=== PATIENT | male | born 1990 | race Caucasian/White ===

== ENCOUNTER 2017-04-07 02:26 | Emergency (ER) | payer SELFPAY ==
[~2017-04-07] VITALS: Ht 167.6 cm; Wt 78.6 kg
[2017-04-07 02:34] VITALS: TEMP 36.8; Ht 167.6 cm; Wt 78.6 kg
[2017-04-07] MEDS ORDERED: OXYCODONE HCL IR 5 MG TAB (IMMEDIATE RELEASE) PO STA (02:51)
[2017-04-07] MEDS ORDERED: OXYC1TAB3 PO (04:14)
[2017-04-07] MEDS ORDERED: OXYCODONE IR HOME PACK PO ONE (04:15)
--- NOTE | 2017-04-07 04:15 | EMERGENCY ROOM VISIT NOTE ---
ED Visit Note First contact with patient: 02:36 CHIEF COMPLAINT: Elbow pain HISTORY OF PRESENT ILLNESS: This 27-year-old male patient presents to the emergency department ambulatory complaining of pain in the right elbow. The patient states that he dislocated his elbow yesterday while riding a bull. He states that he reduced the elbow by himself. He was seen at [place] due to significant bruising and pain and had an x-ray. He was told that he sprained his elbow. He states that he had a previous injury to this elbow years ago but performed exercises at home by himself and never saw a specialist. He rates his current discomfort a 9/10. He reports some numbness in the right third fourth and fifth digits. He denies any other injuries. REVIEW OF SYSTEMS: A 6 system review of systems was completed with positives and pertinent negatives listed in the HPI. ALLERGIES: Penicillins MEDICATIONS: And chronic medications PMH: Previous elbow injury, no significant past medical history. SOCIAL HISTORY: The patient was locally with family. PHYSICAL EXAM: Vital Signs: Reviewed Nurse's notes, vital signs stable. GENERAL : This is a 27-year-old male, in no acute distress, well-developed, well- nourished. SKIN: The skin was without rashes, erythema, edema, warmth, or bruising. Capillary reflex less than 3 seconds. MUSCULOSKELETAL: The patient is holding their elbow in slight flexion. There is significant ecchymosis over the medial aspect of the elbow. There is tenderness to palpation over the medial aspect. Full range of motion of the elbow. Radial pulses 2+. Fingers of the left hand feels slightly colder than the right. NEURO: Patient was alert and oriented to person place and time. Normal sensation to light and sharp touch. RADIOGRAPHIC FINDINGS: RIGHT ELBOW X-RAY: Large bony fragment along the medial aspect of the elbow joint, age indeterminate. There are several smaller bony fragments along the lateral aspect, also age indeterminate. EMERGENCY DEPARTMENT COURSE: I examined the patient. An x-ray of the right elbow was reviewed myself and my attending and shows some abnormal bony fragments most pronounced over the medial aspect of the elbow. The patient has a significant amount of ecchymosis and swelling. He has a hematoma to the medial aspect of the elbow. I do feel this is likely an acute injury and he will certainly need follow-up with orthopedics. He was given information for follow-up. He was placed in an arm sling. The patient was complaining of some numbness of the fingers. Pelvis is likely secondary to the swelling compressing the ulnar nerve. There is no evidence of compartment syndrome on exam today. Patient was given oxycodone in the emergency department for pain and was given a prescription for this. Compartment syndrome warning signs were discussed with the patient. Conservative measures were discussed. He verbalized understanding. The patient was discharged home in stable condition. Patient was reviewed in the [place] prescription drug monitoring program; no red flags were identied. Medication reconciliation: I attest that I have personally reviewed the patient 's current medication list. Blood pressure screening: Patient was found to have normal blood pressure on screening and does not require follow-up. DIAGNOSIS: Elbow injury Current/Historical Medications Scheduled PRN Oxycodone Ir (Roxicodone Ir), 1-2 TAB PO Q4H PRN for Pain Allergies Coded Allergies: Penicillins (Unverified Allergy, Unknown, hives, 04/07/17) Vital Signs Date Time Temp Pulse Resp B/P (MAP) Pulse Ox O2 Delivery O2 Flow Rate FiO2 04/07/17 04:35 94 20 127/94 98 Room Air 04/07/17 02:34 36.8 91 18 98 Room Air Medications Administered Medications (Trade) Dose Ordered Sig/Dorian Route Start Time Stop Time Status Last Admin Dose Admin Oxycodone HCl (Roxicodone Immediate Rel Tab) 5 mg NOW STAT PO 04/07/17 02:51 04/07/17 02:52 DC 04/07/17 03:10 5 MG Oxycodone HCl (Roxicodone Immediate Rel 5MG Home Pack) 1 homepack UD ONCE PO 04/07/17 04:15 04/07/17 04:16 DC 04/07/17 04:38 1 HOMEPACK Departure Information Impression Primary Impression: Injury of right elbow Dispostion Home / Self-Care Condition GOOD Prescriptions Oxycodone Ir (Roxicodone Ir) 5 Mg Tab 1-2 TAB PO Q4H Y for Pain, #15 TAB For Initial Treatment Prov: Tawny Krishnamurthy, DEONNA 04/07/17 Referrals No Doctor, Assigned (PCP) Cayetano Irby MD Patient Instructions My [facility] Additional Instructions You have been treated in the Emergency Department for Elbow Pain. You have received pain medicine in the emergency department which impairs your ability to operate a vehicle. It is illegal for you to drive after receiving these medicines. You have been prescribed Oxy IR to be used for pain control. This is a narcotic medication. You cannot drive or consume alcohol while on this medicine. This medicine should only be used for pain that cannot be controlled with over-the- counter pain medicines. For pain control, you can use the following [id number] medicines (if >12 yo): - Regular strength (325mg/tab) Tylenol (acetaminophen) 2 tabs every 4-6 hours as needed. Do not exceed 12 tablets in a 24 hour period. Avoid taking more than 4 grams (4000 mg) of Tylenol per day. This includes any other sources of acetaminophen you may take on a regular basis. - Regular strength (200 mg/tab) Advil (ibuprofen) 1-2 tabs every 4-6 hours as needed. Do not exceed a dose of 3200 mg per day. If this is a recent injury (<24 hrs), ice can be applied to the area of pain for the first 3 days to help decrease pain and inflammation. You have been provided the number for an Orthopaedic Surgeon. You should call this number as soon as possible to establish a follow-up visit from today's Emergency Department visit. Keep the sling in place until evaluated by Orthopedics. Return to the Emergency Department if your current symptoms worsen despite treatment course outlined above, or if you develop any of the following symptoms : intractable pain despite aforementioned treatment course or new onset of numbness or tingling of the arm. Problem Qualifiers Primary Impression: Injury of right elbow Encounter type: initial encounter Qualified Codes: S59.901A - Unspecified injury of right elbow, initial encounter
[2017-04-07 04:35] VITALS: BP 127/94; PULSE 94; O2SAT 98
--- NOTE | 2017-04-07 08:07 | DIAGNOSTIC IMAGING REPORT ---
RIGHT ELBOW MIN 3 VIEWS ROUTINE CLINICAL HISTORY: 27 years-old Male presenting with right elbow pain after dismounting a bull, reported dislocation, increased pain, swelling, and bruising. TECHNIQUE: Frontal, oblique, and lateral views of the right elbow were obtained. COMPARISON: None. FINDINGS: Extensive soft tissue and subcutaneous edema. Osseous fragmentation along the lateral epicondyle. In a patient of this age, this degree of fragmentation should not the degenerative in etiology, and, therefore is concerning for acute fracture, possibly avulsion injuries. And additional osseous fragment noted distal to the medial upper condyle. The donor site is not immediately apparent where the medial fracture fragment arises. The elbow joint is congruent. IMPRESSION: 1. Fracture fragment along the medial elbow joint without a clear donor site. Additional possible acute osseous injury/avulsion injury at the lateral humeral condyle. Cross-sectional imaging may better demonstrate these fractures. 2. Elbow joint congruent. Electronically signed by: Jose Tracy 04/07/2017 8:06 AM Dictated Date/Time: 04/07/2017 8:00 AM
== END 2017-04-07 04:39 | disposition home or self-care (01) ==
LOC: C.EDB 02:33
DX: S59.901A Unspecified injury of right elbow, initial encounter (principal); X58.XXXA Exposure to other specified factors, initial encounter; Y92.89 Other specified places as the place of occurrence of the external cause; Y93.89 Activity, other specified